=== PATIENT | female | born 1970 ===

== ENCOUNTER 2024-01-09 05:15 | Day surgery (SDC) | payer OTHER ==
[2024-01-05 11:02] LABS: URINE APPEARANCE Clear; URINE BILIRRUBIN Negative (NEGATIVE); URINE BLOOD Negative; URINE COLOR Yellow; URINE GLUCOSE Negative (NEGATIVE); URINE KETONE Trace (NEGATIVE); URINE LEUKOCYTE Trace; URINE NITRATE Negative; URINE PROTEIN Negative (NEGATIVE); URINE UROBILINOGEN 0.2 E.U./dl
[2024-01-05 11:03] LABS: URINE BACTERIA 31.4 uL (0.0-1933); URINE RBC 5.1 uL (0.0-20.8); URINE WBC 4.7 uL (0.0-23.2)
[2024-01-05 11:05] LABS: HEMATOCRIT 41.9 % (36.0-45.00); HEMOGLOBIN 14.2 g/dL (12.0-15.00); MEAN CORPUSCULAR HEMOGLOBIN 29.7 pg (27.00-32.0); MEAN CORPUSCULAR HGB CONC 33.8 g/dl (32.0-36.0); PLATELET COUNT 321 K/uL (150-450); RED BLOOD COUNT 4.77 M/uL (4.00-6.00); RED CELL DISTRIBUTION WIDTH 13.8 % (11.5-14.5)
[2024-01-05 11:06] LABS: URINE EPITHELIAL CELLS 0.1 uL (0.0-38.8)
[2024-01-05 11:27] LABS: INR 0.98; PARTIAL THROMBOPLASTIN TIME 28.4 SECONDS (22.0-34.0); PROTHROMBIN TIME 10.7 SECONDS (9.0-11.5)
[2024-01-05 11:31] LABS: ALBUMIN 4.1 gm/dL (3.4-5.0); BILIRUBIN TOTAL 0.78 mg/dL (0.3-1.2); CALCIUM 9.4 mg/dL (8.5-10.1); CREATININE SERUM 0.46 mg/dL (0.55-1.02); GFR 141.56; GLOBULINA 3.5 G/DL (2.4-3.5); POTASSIUM 4.1 mEq/L (3.5-5.1); TOTAL PROTEIN 7.6 gm/dL (6.4-8.2)
[~2024-01-09 05:15] MED LIST: SYNTHROID100 MCG
[2024-01-09] MEDS ORDERED: CEFAZOLIN SODIUM 1,000 MG VIAL ONE (06:11)
[2024-01-09] MEDS ORDERED: BUPIVACAINE HCL/Mpf 0.5% 10ML VIAL ONE ×2 (06:11→08:34)
== END 2024-01-09 11:15 | disposition home or self-care (01) ==
LOC: CIR.AMB 05:15
PROVIDERS: ATTEND Orthopaedic Surgery Hand Surgery
DX: M65.312 Trigger thumb, left thumb (principal); E03.9 Hypothyroidism, unspecified; Z88.1 Allergy status to other antibiotic agents